=== PATIENT | female | born 1945 | race Caucasian/White ===

== ENCOUNTER 2025-01-29 06:36 | Day surgery (SDC) | payer MEDICARE, OTHER ==
[2025-01-29] MEDS ORDERED: LIDOCAINE HCL 1% 50 MG/5 ML VL IJ ONE (06:37)
[2025-01-29] MEDS ORDERED: Sodium Chloride 0.9(Preservative Free) 10 ML IJ ONE (06:37)
[2025-01-29] MEDS ORDERED: BACIGUENT 30 GM ONE (07:19)
[2025-01-29] MEDS ORDERED: propofoL IV ONE (08:05)
[2025-01-29] MEDS ORDERED: D50W 50 ml Abboject IV ONE (08:12)
[2025-01-29] MEDS ORDERED: CEFAZOLIN SODIUM IV SCH (08:15)
[2025-01-29] MEDS ORDERED: SODIUM CHLORIDE MINI IV SCH (08:15)
[2025-01-29] MEDS ORDERED: Lactated Ringers 1,000 ML IV ONE (09:14)
--- NOTE | 2025-01-29 12:32 | XRAY ---
Indication: Spinal cord stimulator. Intraoperative fluoroscopy provided for 58 seconds. 10 digital spot image submitted for interpretation demonstrates introducer needle tip posterior to L1. Single epidural lead inserted with tip positioned unknown midthoracic level. Correlate with intraoperative findings/report. Incidental incompletely visualized lower lumbar fusion hardware.
--- NOTE | 2025-01-29 12:52 | XRAY ---
58 seconds of fluoroscopy was used in surgery for a spinal cord stimulator trial.
== END 2025-01-29 09:15 | disposition home or self-care (01) ==
LOC: SDC-PAIN 06:36
PROVIDERS: ATTEND Psychiatry & Neurology Pain Medicine
DX: M96.1 Postlaminectomy syndrome, not elsewhere classified (principal); E11.9 Type 2 diabetes mellitus without complications